=== PATIENT | male | born 1990 | race Caucasian/White ===

== ENCOUNTER 2025-05-20 01:19 | Emergency (ER) | payer BC, SELFPAY ==
--- OUTSIDE RECORDS SUMMARY | 2025-05-20 01:22 | XMS REPORT | Continuity of Care Document ---
Author Name Unknown Address [address] [place] [address] [facility] Address [address] [place] [address] Care Team Providers Care Survey Party Chief Name Role Phone No , Pcp Primary Care Physician Unavailab Prachi Schwartz Attending Clinician Unavail able CARLOS ALBA Attending Clinician Unavailable Aida Foster Attending Clinician KAYLAH WELCH Attending Clinician Unavailabl e HERLINDA PETERS (FELLOW Attending Clinician Un available Garland Gomez MD Attending Clinician [phone] , Adc Surg Spec Procedure Attending Clinician Unavailable GARLAND GOMEZ Attending Clinician Unavailable Doctor Unassigned, [facility] Attending Clinician U KAYLAH Warren Admitting Clinician Unavailabl e Payers Payer Name Policy Type Policy Number Effective Date Expirati on Date Source [employer] [id number] 2023 00:00:00 Problems Condition Name Condition Details Condition Category Status Onset Date Resolution Date Last Treatment Date Treating Clinician Comments Source Open wound of left heel Open wound of left heel Disease Active 01-05 00:00: 00 [facility] [id number] Tobacco abuse counseling Problem [facility] [id number] Tobacco abuse Problem [facility] [id number] Grief counseling Problem [facility] Essential hypertensi on Essential (primary) hypertensi on Problem [facility] Attention deficit hyperactiv ity disorder ADHD (attention deficit hyperactiv ity disorder), combined type Problem [facility] Severe major depression , single episode, without psychotic features MDD (major depressive disorder), severe Problem [facility] Alcoholism counseling Alcohol abuse counseling and surveillan ce of alcoholic Problem [facility] Generalize d anxiety disorder ERICK (generaliz ed anxiety disorder) Problem [facility] No known active problems No known active problems Disease [facility] Allergies, Adverse Reactions, Alerts Allergy Name Allergy Type Status Severity Reaction(s) Onset Date Inactive Date Treating Clinician Comments Source NO KNOWN ALLERGIE S Drug Class Active [facility] Social History Social Habit Start Date Stop Date Quantity Comments Source History of Tobacco Use Current Smoker [facility] Sexual orientation [facility] Exposure to SARS-CoV-2 (event) 2022-03-12 00:00:00 2022-03-22 12:45:00 Not sure [facility] Sex assigned at 1990 00:00:00 1990 00:00:00 [facility] Smoking Status Start Date Stop Date Source Unknown if ever smoked Commo n [facility] Current Smoker 2024-02-07 00:00:00 [facility] Medications Ordered Medication Name Filled Medication Name Start Date Stop Date Current Medication? Ordering Clinician Indication Dosage Frequency Signature (SIG) Comments Components Source Amphetamine -Dextroamph et ER 20 MG Amphetamine -Dextroamph et ER 20 MG 3- 00:00: 00 No 1{capsu le_in_t he_morn ing} QD Amphetamin e-Dextroam phet ER 20 MG Citalopram Hydrobromid e 20 MG Citalopram Hydrobromid e 20 MG - 00:00: 00 No 1{table t} QD Citalopram Hydrobromi de 20 MG No known medications 03-22 16:12: 03 No No known medication s [facility] Vital Signs Vital Name Observation Time Observation Value Comments Benito negron height 2024-06-23 10:00:00 69.5 [in_i] Comm on [facility] weight 2024-06-23 10:00:00 159 [lb_av] Comm on [facility] temperature 2024-06-23 10:00:00 98.5 [degF] Com [facility] bmi 2024-06-23 10:00:00 23.14 kg/m2 Comm on [facility] oximetry 2024-06-23 10:00:00 95 % Commo n [facility] respiratory rate 2024-06-23 10:00:00 16 /min [facility] blood pressure systolic 2024-06-23 10:00:00 115 mm[Hg] [facility] blood pressure diastolic 2024-06-23 10:00:00 60 mm[Hg] [facility] height 2024-03-23 10:00:00 69.5 [in_i] Comm on [facility] weight 2024-03-23 10:00:00 157 [lb_av] Comm on [facility] temperature 2024-03-23 10:00:00 98.3 [degF] Com [facility] bmi 2024-03-23 10:00:00 22.85 kg/m2 Comm on [facility] oximetry 2024-03-23 10:00:00 98 % Commo n [facility] respiratory rate 2024-03-23 10:00:00 18 /min [facility] blood pressure systolic 2024-03-23 10:00:00 115 mm[Hg] Common [facility] blood pressure diastolic 2024-03-23 10:00:00 78 mm[Hg] [facility] height 2023-04-15 09:40:00 69.5 [in_i] Comm on [facility] weight 2023-04-15 09:40:00 157 [lb_av] Comm on [facility] temperature 2023-04-15 09:40:00 98.7 [degF] Com mon [facility] bmi 2023-04-15 09:40:00 22.85 kg/m2 Comm on [facility] oximetry 2023-04-15 09:40:00 99 % Commo n [facility] respiratory rate 2023-04-15 09:40:00 19 /min Common [facility] blood pressure systolic 2023-04-15 09:40:00 132 mm[Hg] Common [facility] blood pressure diastolic 2023-04-15 09:40:00 84 mm[Hg] Common [facility] height 2023-03-22 08:40:00 69.5 [in_i] Comm on [facility] weight 2023-03-22 08:40:00 160 [lb_av] Comm on [facility] temperature 2023-03-22 08:40:00 98.7 [degF] Com mon [facility] bmi 2023-03-22 08:40:00 23.29 kg/m2 Comm on [facility] oximetry 2023-03-22 08:40:00 99 % Commo n [facility] respiratory rate 2023-03-22 08:40:00 18 /min Common [facility] blood pressure systolic 2023-03-22 08:40:00 114 mm[Hg] [facility] blood pressure diastolic 2023-03-22 08:40:00 75 mm[Hg] Common [facility] height 2023-02-22 09:00:00 69.5 [in_i] Comm on [facility] weight 2023-02-22 09:00:00 160 [lb_av] Comm on [facility] temperature 2023-02-22 09:00:00 98.4 [degF] Com mon [facility] bmi 2023-02-22 09:00:00 23.29 kg/m2 Comm on [facility] oximetry 2023-02-22 09:00:00 99 % Commo n [facility] respiratory rate 2023-02-22 09:00:00 19 /min [facility] blood pressure systolic 2023-02-22 09:00:00 121 mm[Hg] [facility] blood pressure diastolic 2023-02-22 09:00:00 82 mm[Hg] [facility] Systolic blood pressure 2022-03-22 18:04:00 114 mm[Hg] [facility] Diastolic blood pressure 2022-03-22 18:04:00 74 mm[Hg] [facility] Heart rate 2022-03-22 18:04:00 78 /min [facility] Body temperature 2022-03-22 18:04:00 36.5 Maríae Lena [facility] Respiratory rate 2022-03-22 18:04:00 18 /min [facility] Body height 2022-03-22 18:04:00 172.7 cm [facility] Body weight 2022-03-22 18:04:00 74.571 kg [facility] BMI 2022-03-22 18:04:00 25.00 kg/m2 [facility] Oxygen saturation in Arterial blood by Pulse oximetry 2022-03-22 18:04:00 99 /min [facility] Encounters Start Date/Time End Date/Time Encounter Type Admission Type Attending Clinicians Care Facility Care Department Encounter ID Source 2024-10-05 09:56:00 Outpatient Prachi Esparza [facility] [id number] [facility] 2024-06-19 10:56:00 Outpatient Prachi Esparza [facility] [id number] [facility] 2024-03-17 11:31:00 Outpatient Prachi Esparza [facility] [id number] [facility] 2023-12-12 10:50:00 Outpatient Prachi sEparza [facility] [id number] [facility] 2023-11-13 10:40:02 Outpatient Prachi Esparza [facility] [id number] [facility] 2023-08-28 16:39:01 Outpatient Prachi Esparza [facility] [id number] [facility] 2023-07-22 14:54:01 Outpatient Prachi Esparza [facility] [id number] [facility] 2023-07-09 13:28:00 Outpatient Prachi Esparza [facility] [id number] [facility] 2023-04-17 13:14:01 Outpatient Prachi Esparza [facility] [id number] [facility] 2023-04-15 10:12:01 Outpatient Prachi Esparza [facility] [id number] [facility] 2023-04-05 08:05:01 Outpatient Prachi Esparza [facility] [id number] [facility] 2023-04-04 11:27:01 Outpatient Prachi Esparza [facility] [id number] [facility] 2023-03-26 16:08:00 Outpatient Prachi Esparza [facility] [id number] [facility] 2024-10-05 00:00:00 2024-10-05 00:00:00 OFFICE VISIT ESTAB PT LEVEL 4 [facility] [id number] [facility] 2024-10-05 00:00:00 2024-10-05 00:00:00 (TEL) [facility] [id number] [facility] 2024-10-02 00:00:00 2024-10-02 00:00:00 (TEL) [facility] [id number] [facility] 2024-06-23 00:00:00 2024-06-23 00:00:00 OFFICE VISIT ESTAB PT LEVEL 3 [facility] [id number] [facility] 2024-03-23 13:45:00 2024-03-23 13:45:00 Outpatient CARLOS ALBA [facility] [id number] [facility] 2024-03-23 00:00:00 2024-03-23 00:00:00 (ESTPT) Establishe d Patient [facility] [id number] [facility] 2024-03-09 13:45:00 2024-03-09 13:52:13 Office Visit Aida Lugo [facility] [address] 1.2.840.114 350.1.13.58 9.2.7.2.686 [id number] [facility] 2024-03-05 00:00:00 2024-03-05 00:00:00 (TEL) [facility] [id number] [facility] 2024-02-24 09:45:00 2024-02-24 10:35:00 Office Visit Carlos Alba [facility] [address] 1.2.840.114 350.1.13.58 9.2.7.2.686 [id number] [facility] 2024-02-19 00:00:00 2024-02-19 00:00:00 (TEL) [facility] [id number] [facility] 2024-02-17 13:45:00 2024-02-17 13:45:00 Outpatient CARLOS ALBA [facility] [id number] [facility] 2024-02-03 13:15:00 2024-02-03 14:01:36 Office Visit Carlos Alba [address] 1.2.840.114 350.1.13.58 9.2.7.2.686 [id number] [facility] 2024-01-20 13:30:00 2024-01-20 14:30:31 Office Visit Carlos Alba [address] 1.2.840.114 350.1.13.58 9.2.7.2.686 [id number] [facility] 2024-01-20 09:45:00 2024-01-20 09:45:00 Outpatient CARLOS ALBA [facility] [id number] [facility] 2024-01-16 00:00:00 2024-01-16 00:00:00 (TEL) [facility] [id number] [facility] 2024-01-13 09:15:00 2024-01-13 10:07:37 Office Visit Carlos Alba [address] 1.2.840.114 350.1.13.58 9.2.7.2.686 [id number] [facility] 2024-01-06 09:15:00 2024-01-06 10:20:22 Office Visit Carlos Alba [address] 1.2.840.114 350.1.13.58 9.2.7.2.686 [id number] [facility] 2023-12-26 03:27:00 2023-12-28 16:06:00 Inpatient KAYLAH [facility] [id number] [facility] 2023-12-26 07:30:00 2023-12-26 07:30:00 Outpatient CARLOS ALBA [facility] [id number] [facility] 2023-12-25 00:00:00 2023-12-25 23:59:00 Outpatient HERLINDA PETERS [facility] MEY [id number] [facility] 2023-12-16 00:00:00 2023-12-16 00:00:00 OFFICE VISIT ESTAB PT LEVEL 3 [facility] [id number] [facility] 2023-12-16 00:00:00 2023-12-16 00:00:00 (TEL) [facility] [id number] [facility] 2023-12-06 00:00:00 2023-12-06 00:00:00 (TEL) [facility] [id number] [facility] 2023-10-25 00:00:00 2023-10-25 00:00:00 (TEL) [facility] [id number] [facility] 2023-08-30 00:00:00 2023-08-30 00:00:00 OFFICE VISIT ESTAB PT LEVEL 3 [facility] [id number] [facility] 2023-08-30 00:00:00 2023-08-30 00:00:00 (TEL) [facility] [id number] [facility] 2023-07-22 00:00:00 2023-07-22 00:00:00 OFFICE VISIT ESTAB PT LEVEL 3 [facility] [id number] [facility] 2023-07-22 00:00:00 2023-07-22 00:00:00 (TEL) [facility] [id number] [facility] 2023-06-14 00:00:00 2023-06-14 00:00:00 (TEL) [facility] [id number] [facility] 2023-05-13 00:00:00 2023-05-13 00:00:00 OFFICE VISIT ESTAB PT LEVEL 3 [facility] [id number] [facility] 2023-04-15 00:00:00 2023-04-15 00:00:00 OFFICE VISIT ESTAB PT LEVEL 3 [facility] [id number] [facility] 2023-04-12 00:00:00 2023-04-12 00:00:00 (TEL) [facility] [id number] [facility] 2023-04-08 00:00:00 2023-04-08 00:00:00 (TEL) [facility] [id number] [facility] 2023-03-27 00:00:00 2023-03-27 00:00:00 (TEL) [facility] [id number] [facility] 2023-03-22 00:00:00 2023-03-22 00:00:00 OFFICE VISIT ESTAB PT LEVEL 3 [facility] [id number] [facility] 2023-02-22 00:00:00 2023-02-22 00:00:00 OFFICE VISIT NEW PT LEVEL 3 [facility] [id number] [facility] 2023-02-22 00:00:00 2023-02-22 00:00:00 (TEL) [facility] [id number] [facility] 2023-02-22 00:00:00 2023-02-22 00:00:00 (TEL) [facility] [id number] [facility] 2022-03-28 00:00:00 2022-03-28 00:00:00 Telephone Garland Gomez [facility] 1.2.840.114 350.1.13.10 4.2.7.2.686 [id number] [facility] 2022-03-22 13:00:00 2022-03-22 16:20:13 Office Visit Garland oGmez Rm, Ad[facility]urg [facility] 1.2.840.114 350.1.13.10 4.2.7.2.686 [id number] [facility] 2022-03-22 13:00:00 2022-03-22 16:20:13 Outpatient R GARLAND GOMEZ [facility] [id number] [facility] 2022-03-22 13:00:00 2022-03-22 16:20:13 Outpatient R PATRICIA [facility] [id number] [facility] 2022-03-22 13:00:00 2022-03-22 13:00:00 Outpatient R PATRICIA [facility] [id number] [facility] 2022-03-22 09:30:00 2022-03-22 09:30:00 [facility] [id number] [facility] 2022-03-22 00:00:00 2022-03-22 00:00:00 Orders Only Doctor Unassigned, [facility] 1..840.114 350.1.13.10 4.2.7.2.686 [id number] [facility] 2022-01-25 11:30:00 2022-01-25 12:00:54 Outpatient R PATRICIA [facility] [id number] [facility] 2022-01-25 11:30:00 2022-01-25 12:00:54 Office Visit [facility] 1..840.114 350.1.13.10 4.2.7.2.686 [id number] [facility] 2022-01-25 11:30:00 2022-01-25 11:30:00 Outpatient R PATRICIA [facility] [id number] [facility] 2022-01-25 00:00:00 2022-01-25 00:00:00 Orders Only Doctor Unassigned, [facility] 1..840.114 350.1.13.10 4.2.7.2.686 [id number] [facility] Results Test Description Test Time Test Comments Results Result Co mments Source CBC W/O DIFF, WITH [id number] 00:00:00* Test Item Value Reference Range Interpretation Comme nts HEMATOCRIT (test code = 88108-1) 45.1 % See_Comment [Automated messa ge] The system which generated this result transmitted reference range: 40.0-51.0 %. The reference range was not used to interpret this result as normal/abnormal. HEMOGLOBIN (test code = 718-7) 16.2 G/DL See_Comment [Automated messa ge] The system which generated this result transmitted reference range: 13.5-17.0 G/DL. The reference range was not used to interpret this result as normal/abnormal. MCH (test code = 37334-0) 30.9 PG See_Comment [Automated messa ge] The system which generated this result transmitted reference range: 25.0-33.0 PG. The reference range was not used to interpret this result as normal/abnormal. MCHC (test code = 97356-2) 35.9 G/DL See_Comment [Automated messa ge] The system which generated this result transmitted reference range: 31.0-36.0 G/DL. The reference range was not used to interpret this result as normal/abnormal. MCV (test code = 41949-7) 85.9 fL See_Comment [Automated messa ge] The system which generated this result transmitted reference range: 80.0-99.0 fL. The reference range was not used to interpret this result as normal/abnormal. PLATELET COUNT (test code = 90969-7) 286 K/UL See_Comment [Automated messa ge] The system which generated this result transmitted reference range: 130-400 K/UL. The reference range was not used to interpret this result as normal/abnormal. RBC (test code = 32539-3) 5.25 M/UL See_Comment [Automated messa ge] The system which generated this result transmitted reference range: 4.50-6.10 M/UL. The reference range was not used to interpret this result as normal/abnormal. WBC (test code = 17570-5) 5.8 K/UL See_Comment [Automated messa ge] The system which generated this result transmitted reference range: 3.5-11.0 K/UL. The reference range was not used to interpret this result as normal/abnormal. DRUG ABUSE SCREEN 10, NO [id number] 00:00:00* Test Item Value Reference Range Interpretation Comme nts AMPHETAMINES (test code = 31086-1) NEGATIVE NEGATIVE BARBITURATES (test code = 35347-3) NEGATIVE NEGATIVE BENZODIAZEPINES (test code = 32768-2) NEGATIVE NEGATIVE BUPRENORPHINE (test code = 14257-7) NEGATIVE NEGATIVE CANNABINOIDS (test code = 77612-3) NEGATIVE NEGATIVE COCAINE METABOLITE (test cod e = 88082-1) NEGATIVE NEGATIVE METHADONE (test code = 62425-6) NEGATIVE NEGATIVE OPIATES (test code = 07202-6) NEGATIVE NEGATIVE OXYCODONE (test code = 15566-1) NEGATIVE NEGATIVE PHENCYCLIDINE (test code = 11002-1) NEGATIVE NEGATIVE
[2025-05-20 01:40] LABS: Absolute Lymphocytes (CBC) 2.2 K/uL (0.7-4.9); Hematocrit 50.5 % (39.6-49.0); Hemoglobin 17.7 g/dL (13.6-17.9); MCH 30.9 pg (27.0-35.0); MCHC 35.1 g/dL (32.0-36.0); MCV 88.0 fL (80-100); MPV 6.9 fL (7.6-11.3); Nucleated RBC Absolute Count 0.0 (0-0); Nucleated Red Blood Cells % 0.1 % (0-0); RBC Red Blood Cell Count 5.73 M/uL (4.33-5.43); White Blood Count 8.60 thou/uL (4.3-10.9)
[2025-05-20 01:50] LABS: METHAMPHETAM NEGATIVE (NEGATIVE); THC Cannibis NEGATIVE (NEGATIVE)
[2025-05-20 01:54] LABS: PT Prothrombin Time 10.7 SECONDS (10-13.0); PTT, Activated Partial Thromb 30.6 SECONDS (27.2-37.4); Protime INR 0.95
[2025-05-20 02:01] LABS: ALT/SGPT 45 U/L (16-61); AST/SGOT 24 U/L (15-37); Albumin 4.5 g/dL (3.4-5.0); Albumin/Globulin Ratio 1.3 (1.1-1.8); Alkaline Phosphatase 82 U/L (45-117); Anion Gap 10.6 mEq/L (5.0-15.0); BUN Blood Urea Nitrogen 8 mg/dL (7-18); Bilirubin Indirect, Calculated 0.2 mg/dL (0.2-0.8); Globulin 3.5 g/dL (2.3-3.5); Glucose Level 109 mg/dL (74-106); Potassium 3.6 mEq/L (3.5-5.1)
--- NOTE | 2025-05-20 02:11 | ER ---
Nurse's Notes [facility] Name: Kina Espinosa Age: 34 yrs Sex: Male : 1990 Arrival Date: 05/20/2025 Time: 01:19 Bed 17 Private MD: Diagnosis: SUICIDE GESTURE;Alcohol abuse with intoxication Presentation: 05/20 01:31 Chief complaint: per law enforcement, pt's girlfriend broke up with him earlier today, km10 and pt's mother \\R\\ 1 week ago. Law enforcement states "pt was on facetime with girlfriend stating he is going to kill himself and showed the girlfriend a firearm up to his head, while standing on his front porch". Coronavirus screen: At this time, the client does not indicate any symptoms associated with coronavirus-19. Ebola Screen: No symptoms or risks identified at this time. Initial Sepsis Screen: Does the patient meet any 2 criteria? No. Patient's initial sepsis screen is negative. Does the patient have a suspected source of infection? No. Patient's initial sepsis screen is negative. Risk Assessment: Do you want to hurt yourself or someone else? Other: pt denies suicidal thoughts at this time. Onset of symptoms is unknown. Care prior to arrival: None. 01:31 Method Of Arrival: Law Enforcement [facility] 01:31 Acuity: FELI 2 km10 Triage Assessment: 01:36 General: Appears unkempt, Behavior is agitated, Smells of alcohol. Pain: Denies pain. km10 Neuro: Level of Consciousness is awake, alert, Oriented to person, place, time, situation, Gait is steady, Speech is normal. Respiratory: Airway is patent Respiratory effort is even, unlabored, Respiratory pattern is regular, symmetrical. Historical: - Allergies: 03:46 No Known Allergies; km10 - Infectious Disease History:: Denies. - Social history:: Smoking status: unknown Patient uses alcohol. Screenin:45 [facility] ED Fall Risk Assessment (Adult) History of falling in the last 3 months, km10 including since admission No falls in past 3 months (0 pts) Confusion or Disorientation No (0 pts) Intoxicated or Sedated Yes (3 pts) Impaired Gait No (0 pts) Mobility Assist Device Used No (0 pt) Altered Elimination No (0 pt) Score/Fall Risk Level 3 or more points = High Risk Oriented to surroundings, Maintained a safe environment, Assessed \\T\\ reinforced patient's understanding of fall precautions, Hourly rounding (assess needs \\T\\ fall precautionary measures) done. Abuse screen: Denies threats or abuse. Denies injuries from another. Nutritional screening: No deficits noted. Tuberculosis screening: No symptoms or risk factors identified. Assessment: 01:56 Reassessment: pt not cooperative with [place] Suicide Screen at this time, stating km10 "no, no, no, no" quickly when asked each question on Screening. Papers filled out with pt's answers. 02:01 General: Appears unkempt, Behavior is inappropriate for age, Smells of alcohol. km10 02:42 General: Pt is being verbally and physically threatening with nursing staff.. kd3 04:30 Reassessment: Patient appears in no apparent distress at this time. Patient and/or km10 family updated on plan of care and expected duration. Pain level reassessed. Patient is alert, oriented x 3, equal unlabored respirations, skin warm/dry/pink. 07:22 Reassessment: Patient is alert, oriented x 3, equal unlabored respirations, skin kb4 warm/dry/pink. pt sleeping peacefully, chest rising and falling. General: Appears in no apparent distress. comfortable, Behavior is calm, quiet. 07:41 Respiratory: Airway is patent Respiratory effort is even, unlabored. ap3 15:00 Reassessment: No changes from previously documented assessment. Patient and/or family rg5 updated on plan of care and expected duration. Pain level reassessed. Patient is alert, oriented x 3, equal unlabored respirations, skin warm/dry/pink. General: Appears in no apparent distress. comfortable, Behavior is calm, quiet, sleeping. 16:00 Reassessment: Patient and/or family updated on plan of care and expected duration. Pain rg5 level reassessed. Patient is alert, oriented x 3, equal unlabored respirations, skin warm/dry/pink. 17:00 Reassessment: Patient and/or family updated on plan of care and expected duration. Pain rg5 level reassessed. Patient is alert, oriented x 3, equal unlabored respirations, skin warm/dry/pink. 18:00 Reassessment: Patient and/or family updated on plan of care and expected duration. Pain rg5 level reassessed. Patient is alert, oriented x 3, equal unlabored respirations, skin warm/dry/pink. 19:01 Reassessment: No changes from previously documented assessment. Patient and/or family rg5 updated on plan of care and expected duration. Pain level reassessed. Patient is alert, oriented x 3, equal unlabored respirations, skin warm/dry/pink. 20:00 Reassessment: No changes from previously documented assessment. Patient and/or family rg5 updated on plan of care and expected duration. Pain level reassessed. Patient is alert, oriented x 3, equal unlabored respirations, skin warm/dry/pink. 21:00 Reassessment: No changes from previously documented assessment. Patient and/or family rg5 updated on plan of care and expected duration. Pain level reassessed. Patient is alert, oriented x 3, equal unlabored respirations, skin warm/dry/pink. 22:00 Reassessment: No changes from previously documented assessment. Patient and/or family rg5 updated on plan of care and expected duration. Pain level reassessed. Patient is alert, oriented x 3, equal unlabored respirations, skin warm/dry/pink. General: Appears in no apparent distress. Behavior is calm, quiet, sleeping. 23:26 Reassessment: Patient and/or family updated on plan of care and expected duration. Pain rg5 level reassessed. Patient is alert, oriented x 3, equal unlabored respirations, skin warm/dry/pink. 05/21 00:08 General: received report from medical staff credentialing coordinator jamaal, all questions answered. kt5 00:19 Reassessment: Patient appears in no apparent distress at this time. No changes from kt5 previously documented assessment. Patient and/or family updated on plan of care and expected duration. Pain level reassessed. Patient is alert, oriented x 3, equal unlabored respirations, skin warm/dry/pink. pt sleeping, easily arousable, nad, sitter at bs [facility]. 01:18 Reassessment: Patient appears in no apparent distress at this time. No changes from kt5 previously documented assessment. Patient and/or family updated on plan of care and expected duration. Pain level reassessed. Patient is alert, oriented x 3, equal unlabored respirations, skin warm/dry/pink. sitter at bs. 02:19 Reassessment: Patient appears in no apparent distress at this time. No changes from kt5 previously documented assessment. Patient and/or family updated on plan of care and expected duration. Pain level reassessed. Patient is alert, oriented x 3, equal unlabored respirations, skin warm/dry/pink. sitter at bs. 03:07 Reassessment: Patient appears in no apparent distress at this time. No changes from kt5 previously documented assessment. Patient and/or family updated on plan of care and expected duration. Pain level reassessed. Patient is alert, oriented x 3, equal unlabored respirations, skin warm/dry/pink. sitter at bs. 04:12 Reassessment: Patient appears in no apparent distress at this time. No changes from kt5 previously documented assessment. Patient and/or family updated on plan of care and expected duration. Pain level reassessed. Patient is alert, oriented x 3, equal unlabored respirations, skin warm/dry/pink. sitter at bs. 05:18 Reassessment: Patient appears in no apparent distress at this time. No changes from kt5 previously documented assessment. Patient and/or family updated on plan of care and expected duration. Pain level reassessed. Patient is alert, oriented x 3, equal unlabored respirations, skin warm/dry/pink. SITTER AT BS. 06:01 Reassessment: Patient appears in no apparent distress at this time. No changes from kt5 previously documented assessment. Patient and/or family updated on plan of care and expected duration. Pain level reassessed. Patient is alert, oriented x 3, equal unlabored respirations, skin warm/dry/pink. LACERATION REPAIR COMPLETE, PT TOLERATE WELL. 07:00 General: Appears in no apparent distress. comfortable, Behavior is calm, cooperative. zm Neuro: Level of Consciousness is awake, alert, obeys commands, Oriented to person, place, time, situation. Cardiovascular: Patient's skin is warm and dry. Respiratory: Airway is patent Respiratory effort is even, unlabored, Respiratory pattern is regular, symmetrical. 09:00 Reassessment: Patient appears in no apparent distress at this time. No changes from zm previously documented assessment. Patient and/or family updated on plan of care and expected duration. Pain level reassessed. Patient is alert, oriented x 3, equal unlabored respirations, skin warm/dry/pink. Patient denies pain at this time. Psych: 05/20 01:50 [facility] Suicide Severity Screening: In the past month, have you wished you were km10 or wished you could go to sleep and not wake up? Patient responds "No." per law enforcement, pt made several suicidal comments [employer] LAYOUT DESIGNER. Currently denies SI "In the past month, have you actually had any thoughts of killing yourself?" Patient responds "no." patient denies "In your lifetime, have you ever done anything, started to do anything, or prepared to do anything to end your life?" Patient responds "no." patient denies. Subjective: Patient's mood is irritable, Delusions are denied, Hallucinations are denied Having thoughts of per law enforcement, pt made several suicidal comments [employer] LAYOUT DESIGNER. Objective: Patient is irritable, restless, Speech is slurred. Interventions: Removed personal items and placed in bag. Patient placed in hospital gown. Searched person for dangerous items. Urine collected and sent for urine drug test. Belonging list filled out. Safety Checks: Personal items have been removed. Door is open. No visitors are present at this time. Patient uses Last use was today. Commitment: Patient will be an involuntary commitment. 03:50 [facility] Suicide Severity Screening:. [facility] Suicide Severity Screening: In the past km10 month, have you wished you were or wished you could go to sleep and not wake up? Patient responds "No." "In the past month, have you actually had any thoughts of killing yourself?" Patient responds "no." "In your lifetime, have you ever done anything, started to do anything, or prepared to do anything to end your life?" Patient responds "no.". 03:50 Subjective: Patient's mood is anxious, hyperverbal Delusions are denied, Hallucinations km10 are denied Having thoughts of homicide. Denies plan. Objective: Patient is challenging, irritable. Safety Checks: Personal items have been removed. Door is open. No visitors are present at this time. 05:35 Objective: Patient is pt sleeping at this time, resp even and unlabored, NAD, safety km10 precautions intact. 07:00 [facility] Suicide Severity Screening: In the past month, have you wished you were kb4 or wished you could go to sleep and not wake up? Patient responds "No." Pt reports no, but is on [place] for holding gun to head while on face time with girlfriend after she allegedly broke up with him, witnessed by police manager while said ex girlfriend was pulled over "In the past month, have you actually had any thoughts of killing yourself?" Patient responds "no." "In your lifetime, have you ever done anything, started to do anything, or prepared to do anything to end your life?" Patient responds "no.". Subjective: Patient's mood is Sleepy Delusions are denied, Hallucinations are denied Having thoughts of none, wishes to go home. Objective: Patient is cooperative, Speech is normal, Affect is appropriate. Interventions:. Safety Checks: Personal items have been removed. Door is open. No visitors are present at this time. Patient uses Last use was 8 hours ago. Commitment: Patient will be an involuntary commitment. 05/21 07:00 Safety Checks: Personal items have been removed. Door is open. No visitors are present at this time. Sitter present. Vital Signs: 05/20 01:36 BP 126 / 80; Pulse 93; Resp 18; Temp 97.7(O); Pulse Ox 97% on R/A; Weight 72.57 kg; oe Height 5 ft. 10 in. ; 01:41 BP 126 / 80; Pulse 93; Resp 18; Temp 97.7; Pulse Ox 97% ; km10 09:31 BP 102 / 60; Pulse 95; Resp 18; Temp 97.8; Pulse Ox 96% ; ts3 05/21 06:01 BP 112 / 68; Pulse 92; Resp 16; Temp 98.9; Pulse Ox 99% ; Pain 2/10; kt5 07:07 BP 112 / 75; Pulse 68; Resp 14 S; Temp 98.1; Pulse Ox 95% on R/A; sa1 09:15 BP 115 / 78; Pulse 69; Resp 18; Temp 98.5; Pulse Ox 100% on R/A; Pain 0/10; zm 05/20 01:36 Body Mass Index 22.96 (72.57 kg, 177.8 cm) oe 05/21 06:01 Pain Scale: Adult kt5 09:15 Pain Scale: Adult zm [place] Coma Score: 09:15 Eye Response: spontaneous(4). Motor Response: obeys commands(6). Verbal Response: zm oriented(5). Total: 15. ED Course: 05/20 01:21 Patient arrived in ED. vc1 01:21 Kristopher Russo DO is Attending Physician. tt7 01:30 Sylvia Pham, RN is Primary Nurse. km10 01:36 Triage completed. km10 01:45 Arm band placed on right wrist. km10 01:45 No provider procedures requiring assistance completed. Inserted saline lock: 20 gauge km10 in right antecubital area, using aseptic technique. Blood collected. Flushed with 10 mL NS. 01:46 Patient has correct armband on for positive identification. Bed in low position. km10 [address] in [address], pt in psych safe clothing, security notified. Provided Education on: plan of care. 02:14 IV discontinued, pt removed his IV. km10 07:00 Safety Checks: Personal items have been removed. The door is open or patient has been kb4 placed in a hallway bed/chair. Sitter present at this time. 07:00 Sitter at bedside. Patient is placed in psych hold. kb4 07:00 SI precautions. kb4 10:24 Inserted saline lock: 20 gauge in right upper arm, using aseptic technique. Blood kb4 collected. Flushed with 10 mL NS. 13:20 Attending Physician role handed off by Kristopher Russo DO nathan 13:20 Jeremiah Moore MD is Attending Physician. nathan 16:48 FAXED CLINICAL'S. sp 17:26 DEIRDRE CUELLAR CALLED TO DO NURSE TO NURSE. sp 18:03 deirdre segal stated to nurse will call back. sp 18:51 Attending Physician role handed off by Jeremiah Moore MD tt7 18:51 Kristopher Russo DO is Attending Physician. tt7 05/21 05:35 Re-faxed pt clinical's to [facility]. rv1 07:00 Safety Checks: Personal items have been removed. The door is open or patient has been zm placed in a hallway bed/chair. There are no family/friend visitors at this time Sitter present at this time. 07:00 Report received from HERMINIA Ba. zm 08:20 connected Martha Montoya from [facility] with Celia Montoya for nurse to nurse report. eb 08:21 Report given to Martha at [facility]. cm10 08:28 administrative approval given by Martha KING Rn/ patient has been [facility] to [facility]/ Dr. Guerra has accepted the patient in transfer without consultation with ED provider/ [facility] called for transport. 09:00 Safety Checks: Personal items have been removed. The door is open or patient has been zm placed in a hallway bed/chair. There are no family/friend visitors at this time Sitter present at this time. Administered Medications: 05/20 02:59 CANCELLED (Physician Discretion): droperidol2.5 mg IVP once tt7 03:46 Drug: droPERidol 5 mg IM once Route: IM; Site: right ventrogluteal; km10 04:46 Follow up: Response: No adverse reaction; Anxiety decreased km10 Medication: 02:12 VIS not applicable for this client. af3 Outcome: 02:11 ER care complete, transfer ordered by . tt7 05/21 09:17 Patient left the ED. aa5 09:17 Transferred by ground EMS [facility]. to other acute care facility: [facility] . Transfer form completed. 09:17 Condition: stable 09:17 Instructed on the need for transfer, Demonstrated understanding of instructions, Signatures: Jeremiah Moore MD MD cha Pinkerton, Shawna sp Calderon, Audri, RN RN aa5 Tim Romo Amanda RN RN ap3 Valorie Villanueva Kyli RN RN kd3 Charito Olmedo RN RN vc1 Celia Marshall, RN RN Elena Lr rv1 Amanda Marshall, RN RN cm10 Jamaal Dennison, RN RN 5 Sultan Any sa1 Pati Ocampo RN RN af3 Ingrid Morris RN RN kb4 Sylvia Pham RN RN km10 Eliane Vasquez 3 Jesenia Marte, RN RN kt5 Kristopher Russo DO DO tt7 Corrections: (The following items were deleted from the chart) 05/20 11:43 07:00 Interventions: Patient reassessed during use of restraints. Patient is physically kb4 safe. Patient's cardiac status is stable. Patient's respirations are even and unlabored. Patient has good circulation in all extremities as indicated by capillary refill < 3 seconds. Patient's ROM assessed and is intact. Patient nutrition and hydration needs will continue to be monitored and addressed. Patient hygiene and elimination needs met. Patient assessed for signs of distress. Patient remains reasonably comfortable at this time. Assisted patient in de-escalation of behavior by removing stimuli causing behavior where possible. kb4
--- NOTE | 2025-05-20 02:11 | EDPHYS ---
Physician Documentation [facility] Name: Kina Espinosa Age: 34 yrs Sex: Male : 1990 Arrival Date: 05/20/2025 Time: 01:19 Bed 17 Private MD: ED Physician Kristopher Russo HPI: 05/20 01:22 This 34 yrs old Male presents to ER via Law Enforcement with complaints of suicidal tt7 gesture. 01:22 Patient brought in under emergency penitentiary order after he was allegedly on FaceTime tt7 with his girlfriend and made suicidal statements and pointed a firearm to his head. Patient denies this, states that his girlfriend was pulled over and made up a story to get out of trouble. He states he was just at home drinking beer. Historical: - Allergies: 03:46 No Known Allergies; km10 - Infectious Disease History:: Denies. - Social history:: Smoking status: unknown Patient uses alcohol. ROS: 01:23 Constitutional: negative for fever. Cardiovascular: negative for chest pain. tt7 Respiratory: negative for shortness of breath. Abdomen/GI: negative for abdominal pain, nausea, vomiting, diarrhea. MS/Extremity: negative for injury and deformity. Skin: negative for rash. Exam: 01:34 Constitutional: vital signs reviewed, well appearing. Head/Face: normocephalic, tt7 atraumatic. Eyes: no conjunctival injection, anicteric sclerae. ENT: mucus membranes moist. Cardiovascular: regular rate and rhythm, no lower extremity edema. Respiratory: normal respiratory effort, no accessory muscle use. Back: normal ROM. Skin: warm, dry, intact, normal turgor, normal color, no rash. MS/ Extremity: normal ROM of extremities, no gross deformities. Neuro: alert and oriented with appropriate mental status, normal speech, follows commands, no focal neurologic deficits. Psych: appropriate mood and affect. Vital Signs: 01:36 BP 126 / 80; Pulse 93; Resp 18; Temp 97.7(O); Pulse Ox 97% on R/A; Weight 72.57 kg; oe Height 5 ft. 10 in. ; 01:41 BP 126 / 80; Pulse 93; Resp 18; Temp 97.7; Pulse Ox 97% ; km10 09:31 BP 102 / 60; Pulse 95; Resp 18; Temp 97.8; Pulse Ox 96% ; ts3 05/21 06:01 BP 112 / 68; Pulse 92; Resp 16; Temp 98.9; Pulse Ox 99% ; Pain 2/10; kt5 07:07 BP 112 / 75; Pulse 68; Resp 14 S; Temp 98.1; Pulse Ox 95% on R/A; sa1 09:15 BP 115 / 78; Pulse 69; Resp 18; Temp 98.5; Pulse Ox 100% on R/A; Pain 0/10; zm 05/20 01:36 Body Mass Index 22.96 (72.57 kg, 177.8 cm) oe 05/21 06:01 Pain Scale: Adult kt5 09:15 Pain Scale: Adult zm [place] Coma Score: 09:15 Eye Response: spontaneous(4). Motor Response: obeys commands(6). Verbal Response: zm oriented(5). Total: 15. MDM: 05/20 01:21 Medical Screening Exam initiated tt7 01:25 Differential diagnosis: Suicidal ideations, depression, drug intoxication, alcohol tt7 intoxication, psychosis. Data reviewed: vital signs, nurses notes, lab test result(s), EKG. 01:26 ED course: Patient well-appearing, physical exam reassuring, standard psych/toxicology tt7 workup initiated. 01:28 Historians other than the Patient: Law enforcement: Provided a majority of the history. tt7 01:35 ED course: I independently interpreted the patient's EKG performed on 05/20/2025 at tt7 0127. On my interpretation, EKG demonstrates normal sinus rhythm, ventricular rate 97 bpm, normal axis, normal QRS interval, normal ST segments, no STEMI. 02:08 ED course: Medical workup overall reassuring, only abnormality is significantly tt7 elevated ethanol level of 298, overall the patient is awake and alert and able to answer questions appropriately, he is medically stable for psychiatric placement. 03:44 ED course: Patient removed his IV, became agitated and required anxiolysis with 5 mg IM tt7 droperidol. 06:51 ED course: Patient care signed out to Dr. Moore at shift change at 0700 pending tt7 psychiatric placement. 20:56 ED course: I took over care of this patient at shift change at 1900 on 05/20, the tt7 patient is resting comfortably, in no acute distress, will contact [facility] to perform psychiatric assessment on the patient know that he is clinically sober and less agitated than last night. 05/21 06:53 ED course: Care signed over to Dr. Moore at shift change at 0700 pending psychiatric tt7 placement. 05/20 01:22 Order name: Acetaminophen; Complete Time: 02:07 05/20 01:22 Order name: Basic Metabolic Panel; Complete Time: 02:07 05/20 01:22 Order name: CBC with Diff; Complete Time: 01:48 05/20 01:22 Order name: ETOH Level; Complete Time: 02:07 05/20 01:22 Order name: Hepatic Function; Complete Time: 02:07 05/20 01:22 Order name: PT-INR; Complete Time: 02:07 05/20 01:22 Order name: Ptt, Activated; Complete Time: 02:07 05/20 01:22 Order name: Salicylate; Complete Time: 02:07 05/20 01:22 Order name: Urine Drug Screen; Complete Time: 02:07 05/20 09:31 Order name: ETOH Level; Complete Time: 18:51 ll1 05/20 01:22 Order name: EKG; Complete Time: 01:22 05/20 01:22 Order name: EKG - Nurse/Tech; Complete Time: 01:47 05/20 01:22 Order name: IV Saline Lock; Complete Time: 01:47 05/20 01:22 Order name: Labs collected and sent; Complete Time: 01:47 05/20 01:22 Order name: Suicide Precautions; Complete Time: 01:47 05/20 01:22 Order name: Suicide Screening ([place]); Complete Time: 01:47 tt7 Administered Medications: 05/20 02:59 CANCELLED (Physician Discretion): droperidol2.5 mg IVP once tt7 03:46 Drug: droPERidol 5 mg IM once Route: IM; Site: right ventrogluteal; km10 04:46 Follow up: Response: No adverse reaction; Anxiety decreased km10 Disposition Summary: 05/20/25 02:11 Transfer Ordered Notes: Transfer Location: Psych Facility tt7 Reason: Specialty tt7 Condition: Stable tt7 Problem: new tt7 Symptoms: are unchanged tt7 Accepting Physician: Psych(05/21/25 09:17) aa5 Diagnosis - SUICIDE GESTURE tt7 - Alcohol abuse with intoxication tt7 Forms: - Medication Reconciliation Form tt7 - SBAR form tt7 Signatures: Dispatcher [employer] EDMS Dia Arevalo, RN RN aa5 Sylvia Pham RN RN km10 Jesenia Marte RN RN kt5 Kristopher Russo, DO tt7 Corrections: (The following items were deleted from the chart) 01:23 01:22 ACETAMINOPHEN+C.LAB.BRZ ordered. EDMS EDMS 01:23 01:22 BASIC METABOLIC PANEL+C.LAB.BRZ ordered. EDMS EDMS 01:23 01:22 CBC+H.LAB.BRZ ordered. EDMS EDMS 01:23 01:22 ETHANOL+C.LAB.BRZ ordered. EDMS EDMS 01:23 01:22 HEPATIC FUNCTION+C.LAB.BRZ ordered. EDMS EDMS 01:23 01:22 PROTIME (+INR)+COAG.LAB.BRZ ordered. EDMS EDMS 01:23 01:22 PTT, ACTIVATED+COAG.LAB.BRZ ordered. EDMS EDMS 01:23 01:22 SALICYLATE+C.LAB.BRZ ordered. EDMS EDMS 01:23 01:22 URINE DRUG SCREEN+UC.LAB.BRZ ordered. EDMS EDMS 01:34 01:22 Patient brought in under emergency penitentiary order after he was allegedly on tt7 FaceTime with his girlfriend and made suicidal statements and pointed a firearm to his head. tt7 01:35 01:28 Historians other than the Patient: Law enforcement: Provided a majority of the tt7 history. tt7 02:59 02:44 Droperidol IVP 2.5 mg IVP once ordered. tt7 tt7 05/21 09:17 10 02:11 Psych tt7 aa5
[2025-05-21 10:06] VITALS: BP 112/75; TEMP 98.1; O2SAT 95
== END 2025-05-21 09:17 ==
LOC: ER 01:19
DX: T14.91XA Suicide attempt, initial encounter (principal); F10.129 Alcohol abuse with intoxication, unspecified
CPT/HCPCS: 36415; 80048; 80076; 80143; 80179; 80307; 82077; 85025; 85610; 85730; 93005; 96372; 99285; J1790